=== PATIENT | male | born 1940 | race Hispanic/Latino ===

== ENCOUNTER → 2022-10-19 | Outpatient (CLI) | payer OTHER ==
[~2022-10-19] MED LIST: CIPR-278 PO; ENAL10TA18 PO; GLIP10TA9 PO; IOHEXOL 350 MG/ML 100ML INFUS..BTL IV ONE; PHEN-846 PO; SIMV-43 PO; TYL3 PO
== END | disposition home or self-care (01) ==
LOC: RAH 09:44
PROVIDERS: ATTEND Internal Medicine Cardiovascular Disease
DX: I71.20 Thoracic aortic aneurysm, without rupture, unspecified (principal)
CPT/HCPCS: 71260; Q9967

== ENCOUNTER 2023-01-18 12:20 | Observation (INO) | payer OTHER ==
[~2023-01-18] VITALS: Ht 182.9 cm; Wt 88.5 kg
[~2023-01-18 12:20] MED LIST changes: +ENAL-89 PO; -ENAL10TA18 PO; -IOHEXOL 350 MG/ML 100ML INFUS..BTL IV ONE
[2023-01-18 13:01] LABS: BASOPHILS % (AUTO) 0.4 % (0.0-5.0); EOSINOPHILS % (AUTO) 0.9 % (0.0-8.0); HEMATOCRIT 37.2 % (42-54); MEAN CORPUSCULAR HEMOGLOBIN 31.4 pg (27.0-33.0); MEAN CORPUSCULAR HGB CONC 33.9 g/dL (32.0-36.0); MEAN CORPUSCULAR VOLUME 92.8 fL (79-99); MONOCYTES % (AUTO) 11.4 % (3.0-13.0); NEUTROPHILS % (AUTO) 65.9 % (40.0-77.0); PLATELET COUNT (AUTO) 223 K/uL (130-400); RED BLOOD CELL COUNT(AUTO) 4.01 MIL/uL (4.50-6.20); RED CELL DISTRIBUTION WIDTH 13.2 % (11.0-15.5); WHITE BLOOD COUNT (AUTO) 6.9 K/uL (4.8-10.8)
[2023-01-18 13:13] LABS: CREATININE 0.8 mg/dL (0.5-1.5); POTASSIUM 4.1 mmol/L (3.5-5.1)
[2023-01-18 13:17] LABS: ALBUMIN 3.7 g/dL (3.5-5.0); TOTAL PROTEIN, SERUM 7.5 g/dL (6.0-8.3)
[2023-01-18] MEDS ORDERED: GUAIFENESIN-DM 200/20 MG 10 ML PO PRN (14:30)
[2023-01-18] MEDS ORDERED: ACETAMINOPHEN 325 MG TAB PO PRN ×3 (14:30→15:30)
[2023-01-18] MEDS ORDERED: ONDANSETRON 4MG INJ IV PRN ×2 (14:30→15:30)
[2023-01-18] MEDS ORDERED: 0.9%NACL 1000ML 1,000 ML IV SCH (14:30)
[2023-01-18] MEDS ORDERED: HYDROCODONE/ACETAMINOPHEN 5/325 MG TAB PO PRN (14:30)
[2023-01-18] MEDS ORDERED: DIPHENHYDRAMINE HCL 25 MG CAPSULE PO PRN (14:30)
[2023-01-18] MEDS ORDERED: BENZONATATE 100 MG CAPSULE PO PRN (14:30)
[2023-01-18] MEDS ORDERED: ALPRAZOLAM 0.25 MG TABLET PO PRN (14:30)
[2023-01-18] MEDS ORDERED: HYDRALAZINE 25MG TABLET PO PRN (14:30)
[2023-01-18 15:28] LABS: INR 0.93 (0.85-1.15); PROTHROMBIN TIME 9.8 SEC (9.6-11.6)
[2023-01-18] MEDS ORDERED: POTASSIUM CHLORIDE 10% ELIXIR 20 MEQ/15 ML UDCUP PO PRN (15:30)
[2023-01-18] MEDS ORDERED: HYDRALAZINE 20MG/ML VIAL IV PRN (15:30)
[2023-01-18] MEDS ORDERED: POTASSIUM CHLORIDE 20MEQ/100ML 100 ML IV PRN (15:30)
[2023-01-18] MEDS ORDERED: KCL 20 MEQ ERTAB PO PRN (15:30)
[2023-01-18] MEDS ORDERED: DEXTROSE 50%-WATER 50 ML DISP.SYRIN IV PRN (15:30)
[2023-01-18] MEDS ORDERED: LACTULOSE 20 GM/30 ML UDCUP PO PRN (15:30)
[2023-01-18] MEDS ORDERED: MAGNESIUM 2GM PREMIX 50ML 50 ML IV PRN (15:30)
[2023-01-18] MEDS ORDERED: GLUCAGON 1MG KIT 1 MG ML IM PRN (15:30)
[2023-01-18 15:38] LABS: HEMOGLOBIN A1C 7.9 % (4.0-6.0)
[2023-01-18] MEDS: INSULIN HUMULIN R 100 UNIT/ML 3ML SQ SCH ×2 (16:29→19:46)
[2023-01-18 16:50] LABS: APPEARANCE,URINE CLEAR (CLEAR); BILIRUBIN,URINE NEGATIVE (NEGATIVE); COLOR,URINE COLORLESS (YELLOW); GLUCOSE, URINE (UA) 50 mg/dL (NEGATIVE); KETONES,URINE NEGATIVE (NEGATIVE); LEUKOCYTE ESTERASE ,URINE 75 Leu/uL (NEGATIVE); NITRATE,URINE NEGATIVE (NEGATIVE); OCCULT BLOOD,URINE LARGE (NEGATIVE); PROTEIN,URINE NEGATIVE (NEGATIVE); UROBILINOGEN,URINE 0.2 mg/dL (0.2-1.0)
[2023-01-18 17:00] VITALS: BP 152/80
[2023-01-18 17:01] LABS: BACTERIA,URINE RARE /HPF (None Seen); MUCUS,URINE RARE LPF (None Seen); SQUAMOUS EPITHELIAL CELL,UR RARE /HPF (0-2)
[2023-01-18] MEDS ORDERED: SIMV10TA97 PO (17:01)
[2023-01-18] MEDS ORDERED: AEC81 PO (17:05)
[2023-01-18] MEDS ORDERED: FINA5TAB41 PO (17:05)
[2023-01-18] MEDS ORDERED: LISI5TAB21 PO (17:05)
[2023-01-18] MEDS ORDERED: GLIP10TA9 PO (17:14)
[2023-01-18] MEDS ORDERED: ENAL-89 PO (17:14)
[2023-01-18] MEDS ORDERED: vitamin b12 PO (17:14)
[2023-01-18] MEDS ORDERED: METO-408 PO (17:14)
[2023-01-18] MEDS ORDERED: ATOR40TA69 PO (17:14)
[2023-01-18] MEDS ORDERED: IPRATROPIUM/ALBUTEROL SULFATE 3 ML SOLUTION IH SCH (18:00)
[2023-01-18 19:18] VITALS: BP 108/66
[2023-01-18] MEDS: ATORVASTATIN 40 MG TABLET PO SCH (19:41)
[2023-01-18] MEDS: FAMOTIDINE 20MG VIAL IV SCH (19:41)
[2023-01-18] MEDS: ENALAPRIL MALEATE 10 MG TABLET PO SCH (19:41)
[2023-01-18] MEDS ORDERED: FAMOTIDINE 20MG TAB PO SCH (21:00)
[2023-01-18 23:09] VITALS: BP 109/66
[2023-01-19 03:33] VITALS: BP 123/72
[2023-01-19 04:20] LABS: MEAN CORPUSCULAR HEMOGLOBIN 31.5 pg (27.0-33.0); MEAN CORPUSCULAR HGB CONC 33.4 g/dL (32.0-36.0); MEAN CORPUSCULAR VOLUME 94.1 fL (79-99); RED BLOOD CELL COUNT(AUTO) 3.72 MIL/uL (4.50-6.20); RED CELL DISTRIBUTION WIDTH 13.4 % (11.0-15.5)
[2023-01-19 04:30] LABS: CREATININE 0.8 mg/dL (0.5-1.5); POTASSIUM 3.9 mmol/L (3.5-5.1)
[2023-01-19] MEDS: INSULIN HUMULIN R 100 UNIT/ML 3ML SQ SCH ×4 (05:34→19:27)
[2023-01-19 08:00] VITALS: BP 139/81
[2023-01-19] MEDS: ENALAPRIL MALEATE 10 MG TABLET PO SCH ×2 (08:29→19:54)
[2023-01-19] MEDS: METOPROLOL SUCCINATE 25 MG TAB.SR.24H PO SCH (08:29)
[2023-01-19] MEDS: FAMOTIDINE 20MG VIAL IV SCH ×2 (08:29→19:54)
[2023-01-19] MEDS: ENOXAPARIN SODIUM 40 MG/0.4 ML SYRINGE SQ SCH (08:29)
[2023-01-19] MEDS ORDERED: ENOXAPARIN SODIUM 40 MG/0.4 ML SYRINGE SQ SCH (09:00)
[2023-01-19] MEDS: ACETAMINOPHEN 325 MG TAB PO PRN (11:29)
[2023-01-19] MEDS: CEFTRIAXONE 1G VIAL IVPB SCH (11:36)
[2023-01-19 12:00] VITALS: BP 133/78
[2023-01-19 12:29] LABS: % IRON SATURATION 30.2 % (30-44)
[2023-01-19 16:00] VITALS: BP 126/75
[2023-01-19] MEDS ORDERED: CHLORDIAZEPOXIDE HCL 25 MG CAP ONE (16:14)
[2023-01-19] MEDS ORDERED: PHARMACY COMMUNICATION MISC PRN (16:30)
[2023-01-19] MEDS ORDERED: CHLORDIAZEPOXIDE HCL 25 MG CAP PO PRN ×2 (16:30)
[2023-01-19] MEDS ORDERED: LORAZEPAM 2 MG/ML 1 ML VIAL IVP PRN ×2 (16:30)
[2023-01-19] MEDS: ATORVASTATIN 40 MG TABLET PO SCH (19:54)
[2023-01-19 19:58] VITALS: BP 132/79
[2023-01-19] MEDS: THIAMINE HCL 100 MG, FOLIC ACID 1 MG in 0.9%NACL 1000ML 1,000 ML IV SCH (20:20)
[2023-01-20] VITALS (8 sets, daily range): BP systolic 105–149; BP diastolic 59–84
[2023-01-20 04:55] LABS: HEMATOCRIT 37.4 % (42-54); MEAN CORPUSCULAR HEMOGLOBIN 31.1 pg (27.0-33.0); MEAN CORPUSCULAR HGB CONC 32.9 g/dL (32.0-36.0); MEAN CORPUSCULAR VOLUME 94.7 fL (79-99); RED BLOOD CELL COUNT(AUTO) 3.95 MIL/uL (4.50-6.20); RED CELL DISTRIBUTION WIDTH 13.2 % (11.0-15.5); WHITE BLOOD COUNT (AUTO) 5.4 K/uL (4.8-10.8)
[2023-01-20 05:11] LABS: CARBON DIOXIDE 27 mmol/L (21-32); CHLORIDE 103 mmol/L (101-111); CREATININE 0.8 mg/dL (0.5-1.5); GLOMERULAR FILTR. RATE CALC 88 mL/min (>90); GLUCOSE,RANDOM 168 mg/dL (70-105); POTASSIUM 3.9 mmol/L (3.5-5.1); SODIUM SERUM 137 mmol/L (136-145); UREA NITROGEN, BLOOD 15 mg/dL (7-18)
[2023-01-20] MEDS ORDERED: REGADENOSON 0.4 MG/5 ML PF SYG IVP SCH (06:30)
[2023-01-20] MEDS: INSULIN HUMULIN R 100 UNIT/ML 3ML SQ SCH ×4 (07:30→20:27)
[2023-01-20] MEDS: FAMOTIDINE 20MG VIAL IV SCH ×2 (08:31→20:19)
[2023-01-20] MEDS: ENALAPRIL MALEATE 10 MG TABLET PO SCH ×2 (08:31→20:21)
[2023-01-20] MEDS: METOPROLOL SUCCINATE 25 MG TAB.SR.24H PO SCH (08:31)
[2023-01-20] MEDS: ENOXAPARIN SODIUM 40 MG/0.4 ML SYRINGE SQ SCH (08:32)
[2023-01-20] MEDS: CEFTRIAXONE 1G VIAL IVPB SCH (12:14)
[2023-01-20] MEDS: THIAMINE HCL 100 MG, FOLIC ACID 1 MG in 0.9%NACL 1000ML 1,000 ML IV SCH (15:53)
[2023-01-20] MEDS: ATORVASTATIN 40 MG TABLET PO SCH (20:19)
[2023-01-21 03:26] VITALS: BP 144/71
[2023-01-21] MEDS: ACETAMINOPHEN 325 MG TAB PO PRN (03:39)
[2023-01-21 04:46] LABS: HEMATOCRIT 36.2 % (42-54); MEAN CORPUSCULAR HEMOGLOBIN 31.1 pg (27.0-33.0); MEAN CORPUSCULAR HGB CONC 32.6 g/dL (32.0-36.0); MEAN CORPUSCULAR VOLUME 95.5 fL (79-99); PLATELET COUNT (AUTO) 203 K/uL (130-400); RED BLOOD CELL COUNT(AUTO) 3.79 MIL/uL (4.50-6.20); RED CELL DISTRIBUTION WIDTH 13.4 % (11.0-15.5); WHITE BLOOD COUNT (AUTO) 5.6 K/uL (4.8-10.8)
[2023-01-21 04:57] LABS: CREATININE 0.9 mg/dL (0.5-1.5); PHOSPHORUS 4.2 mg/dL (2.5-4.9); POTASSIUM 4.1 mmol/L (3.5-5.1)
[2023-01-21 05:05] LABS: BAND NEUTROPHILS % (MANUAL) 4 % (0-2); BASOPHILS % (MANUAL) 4 % (0-2); LYMPHOCYTES % (MANUAL) 48 % (22-44); MONOCYTES % (MANUAL) 8 % (2-9); SEGMENTED NEUTROPHILS % 36 % (40-70)
[2023-01-21 05:06] LABS: MAN.DIFF COMMENT-IMPRESSION MANUAL DIFFERENTIAL; PLATELET MORPHOLOGY COMMENT ADEQUATE
[2023-01-21] MEDS: INSULIN HUMULIN R 100 UNIT/ML 3ML SQ SCH ×2 (05:36→11:21)
[2023-01-21 07:51] VITALS: BP 152/64
[2023-01-21] MEDS: ENALAPRIL MALEATE 10 MG TABLET PO SCH (08:47)
[2023-01-21] MEDS: FAMOTIDINE 20MG VIAL IV SCH (08:47)
[2023-01-21] MEDS: METOPROLOL SUCCINATE 25 MG TAB.SR.24H PO SCH (08:47)
[2023-01-21] MEDS: ENOXAPARIN SODIUM 40 MG/0.4 ML SYRINGE SQ SCH (08:48)
[2023-01-21] MEDS: CEFTRIAXONE 1G VIAL IVPB SCH (11:17)
[2023-01-21 11:30] VITALS: BP 132/82
== END 2023-01-21 14:00 | disposition home or self-care (01) ==
LOC: EDH 12:20 → OBSVTOIN 14:25 → INTOOBSV 14:25 → EDHIP 14:25 → 4CH 17:00
PROVIDERS: ADMIT Internal Medicine; ATTEND Internal Medicine
DX: I25.110 Atherosclerotic heart disease of native coronary artery with unstable angina pectoris (principal); Z20.822 Contact with and (suspected) exposure to COVID-19; E11.65 Type 2 diabetes mellitus with hyperglycemia; D64.9 Anemia, unspecified; E87.1 Hypo-osmolality and hyponatremia; I10 Essential (primary) hypertension; E78.00 Pure hypercholesterolemia, unspecified; I25.2 Old myocardial infarction; I34.0 Nonrheumatic mitral (valve) insufficiency; C67.9 Malignant neoplasm of bladder, unspecified; I34.81 Nonrheumatic mitral (valve) annulus calcification; R07.89 Other chest pain; I45.10 Unspecified right bundle-branch block; E66.9 Obesity, unspecified; G47.00 Insomnia, unspecified; K59.00 Constipation, unspecified; F10.10 Alcohol abuse, uncomplicated; Z85.51 Personal history of malignant neoplasm of bladder; Z86.79 Personal history of other diseases of the circulatory system; Z79.899 Other long term (current) drug therapy; Z98.890 Other specified postprocedural states; Z79.82 Long term (current) use of aspirin; Z79.84 Long term (current) use of oral hypoglycemic drugs; Z68.26 Body mass index [BMI] 26.0-26.9, adult
CPT/HCPCS: 96372 ×4; 96375 ×2; 83036; 84484 ×3; 80053; 83880; 85025 ×2; 85610; 85730; 87088; 82948 ×11; 81001; 36415 ×4; 87635; 71045; 93880; 99291; 93005; 96376 ×3; 96365; 96366 ×4; 96367; 83540; 83550; 80048 ×3; 85027 ×2; 93017; 78452; 93306; 93356; 97161; 97116; 82607; 82746; 84100; J3490 ×8; G0378 ×44; J7030 ×2; J0696 ×3; J3411 ×2; J2060; J1650 ×3; J1815; A9500 ×2; J2785; 96374